=== PATIENT | female | born 1935 | race Caucasian/White ===

== ENCOUNTER 2021-02-09 09:09 | Outpatient (CLI) | payer OTHER | END 2021-02-09 09:36 | disposition home or self-care (01) | LOC: LAB 09:09 | PROVIDERS: ATTEND Internal Medicine Cardiovascular Disease | DX: I10 Essential (primary) hypertension (principal); E78.5 Hyperlipidemia, unspecified; E03.8 Other specified hypothyroidism; D64.89 Other specified anemias; E11.9 Type 2 diabetes mellitus without complications ==

== ENCOUNTER 2021-03-10 09:37 | Outpatient (CLI) | payer OTHER | END 2021-03-10 16:19 | disposition home or self-care (01) | LOC: LAB 09:37 | PROVIDERS: ATTEND Internal Medicine Geriatric Medicine | DX: D64.9 Anemia, unspecified (principal); D50.0 Iron deficiency anemia secondary to blood loss (chronic); E55.9 Vitamin D deficiency, unspecified; E56.9 Vitamin deficiency, unspecified; E78.5 Hyperlipidemia, unspecified ==

== ENCOUNTER → 2021-06-14 | Outpatient (CLI) | payer OTHER | END | disposition home or self-care (01) | LOC: LAB 10:37 | PROVIDERS: ATTEND Internal Medicine Geriatric Medicine | DX: E78.49 Other hyperlipidemia (principal); E55.9 Vitamin D deficiency, unspecified; N39.0 Urinary tract infection, site not specified; D51.8 Other vitamin B12 deficiency anemias ==

== ENCOUNTER 2021-07-13 15:43 | Outpatient (CLI) | payer OTHER | END 2021-07-13 15:55 | disposition home or self-care (01) | LOC: RAD 15:43 | PROVIDERS: ATTEND Specialist | DX: M43.8X5 Other specified deforming dorsopathies, thoracolumbar region (principal); M54.5 Low back pain ==

== ENCOUNTER 2021-09-08 10:55 | Outpatient (CLI) | payer OTHER | END 2021-09-08 11:00 | disposition home or self-care (01) | LOC: PPH VACUNA 10:55 | PROVIDERS: ATTEND Emergency Medicine Pediatric Emergency Medicine | DX: Z23 Encounter for immunization (principal) ==

== ENCOUNTER 2022-02-02 12:50 | Outpatient (CLI) | payer OTHER | END 2022-02-02 13:18 | disposition home or self-care (01) | LOC: LAB 12:50 | PROVIDERS: ATTEND Internal Medicine Geriatric Medicine | DX: G30.9 Alzheimer's disease, unspecified (principal); I10 Essential (primary) hypertension; E03.9 Hypothyroidism, unspecified; E11.9 Type 2 diabetes mellitus without complications; E78.5 Hyperlipidemia, unspecified; D64.9 Anemia, unspecified; E53.8 Deficiency of other specified B group vitamins; E55.9 Vitamin D deficiency, unspecified ==

== ENCOUNTER 2022-02-03 10:01 | Outpatient (CLI) | payer OTHER | END 2022-02-03 10:02 | disposition home or self-care (01) | LOC: LAB 10:01 | PROVIDERS: ATTEND Internal Medicine Geriatric Medicine | DX: I10 Essential (primary) hypertension (principal); E03.9 Hypothyroidism, unspecified; N39.0 Urinary tract infection, site not specified; E11.9 Type 2 diabetes mellitus without complications; E78.5 Hyperlipidemia, unspecified; D64.9 Anemia, unspecified; E53.8 Deficiency of other specified B group vitamins; E55.9 Vitamin D deficiency, unspecified ==

== ENCOUNTER 2023-09-07 16:29 | Emergency (ER) | payer OTHER ==
[~2023-09-07] VITALS: Ht 170.2 cm; Wt 90.7 kg
[~2023-09-07 16:29] MED LIST: B12 ACTIVE1000 MCG PO; DONEPEZIL HCL10 MG PO; ENALAPRIL MALEA10 MG NGT; ESCITALOPRAM OX10 MG PO; MEMANTINE HCL10 MG PO; SYNTHROID112 MCG PO
[2023-09-07 17:56] LABS: HEMATOCRIT 41.8 % (36.0-45.00); MEAN CELL VOLUME 97.1 fL (80.00-100.00); MEAN CORPUSCULAR HEMOGLOBIN 32.5 pg (27.00-32.0); MEAN CORPUSCULAR HGB CONC 33.4 g/dl (32.0-36.0); PLATELET COUNT 280 K/uL (150-450); RED BLOOD COUNT 4.31 M/uL (4.00-6.00); RED CELL DISTRIBUTION WIDTH 13.1 % (11.5-14.5)
[2023-09-07 18:03] LABS: PH,URINE 6.5 (5.0-8.0); URINE APPEARANCE Turbid; URINE BILIRRUBIN Negative (NEGATIVE); URINE BLOOD Negative; URINE COLOR Yellow; URINE GLUCOSE Negative (NEGATIVE); URINE LEUKOCYTE Moderate; URINE NITRATE Positive; URINE PROTEIN 30 (NEGATIVE); URINE UROBILINOGEN 0.2 E.U./dl
[2023-09-07 18:04] LABS: URINE EPITHELIAL CELLS 50.7 uL (0.0-38.8); URINE RBC 235.4 uL (0.0-20.8); URINE WBC 78.3 uL (0.0-23.2)
[2023-09-07 18:32] LABS: CALCIUM 9.1 mg/dL (8.5-10.1); CREATININE SERUM 0.94 mg/dL (0.55-1.02); GFR 56.59; POTASSIUM 3.99 mEq/L (3.5-5.1)
[2023-09-07 18:47] LABS: URINE BACTERIA > 9821.2 uL (0.0-1933)
[2023-09-07 18:50] LABS: URINE YEAST MODERATE /hpf
== END 2023-09-07 19:20 | disposition home or self-care (01) ==
LOC: ER 16:29
PROVIDERS: General Practice
DX: N39.0 Urinary tract infection, site not specified (principal)
CPT/HCPCS: 36415; 96372; 99282; J0696

== ENCOUNTER 2025-06-02 11:53 | Emergency (ER) | payer OTHER ==
[~2025-06-02] VITALS: Ht 157.5 cm; Wt 72.6 kg
[2025-06-02] MEDS ORDERED: ARICEPT10 MG PO (12:11)
[2025-06-02] MEDS ORDERED: LEVOTHYROXINE25 MCG PO (12:11)
[2025-06-02] MEDS ORDERED: KETOROLAC TROMETHAMINE 60 MG VIAL IM STA (13:29)
[2025-06-02] MEDS ORDERED: DEXAMETHASONE 4 MG TABLET PO STA (13:29)
== END 2025-06-02 19:16 | disposition home or self-care (01) ==
LOC: ER
DX: M13.0 Polyarthritis, unspecified (principal)
CPT/HCPCS: 72100; 73565; 96372; 99283; J1885

== ENCOUNTER 2025-09-03 09:45 | Emergency (ER) | payer OTHER ==
[~2025-09-03] VITALS: Ht 175.3 cm; Wt 77.1 kg
[~2025-09-03 09:45] MED LIST changes: +ARICEPT10 MG PO; +LEVOTHYROXINE25 MCG PO
[2025-09-03] MEDS ORDERED: GUAIFENESIN/DEXTROMETHORPHAN 100MG/10ML BLIST.PACK PO STA (11:57)
[2025-09-03] MEDS ORDERED: CETIRIZINE HCL 5 MG/5 ML ML PO STA (11:57)
[2025-09-03] MEDS ORDERED: GUAIFENESIN/DEXTROMETHORPHAN 100MG/10ML BLIST.PACK PO ONE (12:04)
[2025-09-03] MEDS ORDERED: CETIRIZINE HCL 5MG/5ML BLIST.PACK PO ONE (12:04)
[2025-09-03 12:19] LABS: BASO % 0.5 % (0.1-1.2); EOS # 0.09 (0.04-0.54); EOS % 0.9 % (0.7-7.0); LYMPH # 1.85 (1.18-3.74); LYMPH % 19.4 % (19.3-53.1); MEAN PLATELET VOLUME 9.20 fl (9.4-12.4); MONO # 0.91 (0.24-0.82); MONO % 9.5 % (4.7-12.5); NEUT # 6.63 (1.56-6.13); NEUT % 69.5 % (34.0-71.1); RED CELL DISTRIBUTION WIDTH 12.8 % (11.6-14.4)
[2025-09-03 12:41] LABS: ALT/SGPT 16.0 U/L (12-78); AST/SGOT 14.0 U/L (15-37); BILIRUBIN TOTAL 0.61 mg/dL (0.3-1.2); BUN CREA RATIO 19.0 (7.0-25.0); CREATININE SERUM 0.99 mg/dL (0.55-1.02); GFR 53.06; GLOBULINA 4.7 G/DL (2.4-3.5); GLUCOSE FASTING 105.0 mg/dL (65-100); OSMOLALITY SERUM 284.0 MOSM/KG (275-295)
[2025-09-03 12:42] LABS: COVID-19 AG NEGATIVE (NEGATIVE)
[2025-09-03] MEDS ORDERED: AMOX-CLAV 875-1 EAC1 PO (14:20)
[2025-09-03] MEDS ORDERED: PEPCID AC20 MG PO (14:20)
[2025-09-03] MEDS ORDERED: MUCINEX DM ER1 EACH PO (14:20)
== END 2025-09-03 14:48 | disposition home or self-care (01) ==
LOC: ER 09:45
PROVIDERS: General Practice
DX: J06.9 Acute upper respiratory infection, unspecified (principal); R05.9 Cough, unspecified; Z20.822 Contact with and (suspected) exposure to COVID-19

== ENCOUNTER 2025-11-08 10:07 | Outpatient (CLI) | payer OTHER ==
[~2025-11-08 10:07] MED LIST changes: +AMOX-CLAV 875-1 EAC1 PO; +MUCINEX DM ER1 EACH PO; +PEPCID AC20 MG PO
[2025-11-08 11:09] LABS: BASO % 0.4 % (0.1-1.2); EOS # 0.09 (0.04-0.54); EOS % 1.0 % (0.7-7.0); LYMPH # 1.68 (1.18-3.74); LYMPH % 18.4 % (19.3-53.1); MEAN PLATELET VOLUME 9.20 fl (9.4-12.4); MONO # 0.63 (0.24-0.82); MONO % 6.9 % (4.7-12.5); NEUT # 6.66 (1.56-6.13); NEUT % 73.1 % (34.0-71.1); RED CELL DISTRIBUTION WIDTH 13.9 % (11.6-14.4)
[2025-11-08 11:53] LABS: ALT/SGPT 22.0 U/L (12-78); AST/SGOT 17.0 U/L (15-37); BILIRUBIN TOTAL 0.78 mg/dL (0.3-1.2); BUN CREA RATIO 21.0 (7.0-25.0); CHOL HDL RATIO 2.7 (0-5.0); CREATININE SERUM 0.91 mg/dL (0.55-1.02); GFR 58.34; GLOBULINA 4.2 G/DL (2.4-3.5); GLUCOSE FASTING 106.0 mg/dL (65-100); HDL 81.0 mg/dl (40-60); LDL 122.0 mg/dl (0-130); OSMOLALITY SERUM 288.0 MOSM/KG (275-295); TSH 4.01 uIU/mL (0.358-3.74); VLDL 18.0 (0-39)
[2025-11-08 12:59] LABS: FOLIC ACID > 20.00 ng/ml (4.78-20); VITAMIN D3 25 HYDROXY 49.84 ng/ml (30-120)
[2025-11-08 15:58] LABS: URINE APPEARANCE Clear; URINE BILIRRUBIN Negative (NEGATIVE); URINE BLOOD Negative; URINE COLOR Yellow; URINE GLUCOSE Negative (NEGATIVE); URINE KETONE Negative (NEGATIVE); URINE LEUKOCYTE Moderate; URINE NITRATE Negative; URINE PROTEIN Trace (NEGATIVE); URINE UROBILINOGEN 0.2 E.U./dl
[2025-11-08 16:01] LABS: URINE EPITHELIAL CELLS 11.0 uL (0.0-38.8); URINE RBC 14.1 uL (0.0-20.8); URINE WBC 758.6 uL (0.0-23.2)
[2025-11-08 16:04] LABS: URINE CAST 0.28 uL (0.0-1.40)
[2025-11-08 16:06] LABS: ob POSITIVE (NEGATIVE)
== END 2025-11-08 10:23 | disposition home or self-care (01) ==
LOC: LAB 10:07
DX: N39.0 Urinary tract infection, site not specified (principal); D51.9 Vitamin B12 deficiency anemia, unspecified; E55.9 Vitamin D deficiency, unspecified; K62.5 Hemorrhage of anus and rectum; E03.9 Hypothyroidism, unspecified; E78.5 Hyperlipidemia, unspecified; R78.89 Finding of other specified substances, not normally found in blood; R73.09 Other abnormal glucose